=== PATIENT | female | born 1990 | race Caucasian/White ===

== ENCOUNTER 2018-02-06 03:08 | Inpatient (IN) | payer BC ==
[~2018-02-06] VITALS: Ht 152.4 cm; Wt 80.0 kg
[~2018-02-06 03:08] MED LIST: DOCU-131 PO; METH500T97 PO; ONDA4TAB7 PO; OXYC-432 PO; OXYC10TA6 PO
[2018-02-06] MEDS ORDERED: D5%-LACTATED RINGERS 1,000 ML IV SCH (04:23)
[2018-02-06] MEDS ORDERED: OXYTOCIN 30U/ 0.9% NaCL 500ML 500 ML IV ONE (04:23)
[2018-02-06] MEDS ORDERED: FENTANYL/BUPIV./NS/PF 250 ML EPIDCONT SCH ×3 (04:27→05:57)
[2018-02-06] MEDS ORDERED: FENTANYL PF 100 MCG/2ML ONE ×2 (04:28→05:25)
[2018-02-06] MEDS ORDERED: FENTANYL PF 100 MCG/2ML IV PRN (04:30)
[2018-02-06] MEDS ORDERED: METOCLOPRAMIDE 5 MG/ML, 2ML IVPush PRN (04:30)
[2018-02-06] MEDS ORDERED: ONDANSETRON 2MG/ML, 2ML IVPush PRN ×2 (04:30→06:00)
[2018-02-06] MEDS ORDERED: CALCIUM CARBONATE 500 MG TAB.CHEW PO PRN (04:30)
[2018-02-06] MEDS ORDERED: TERBUTALINE 1 MG/ML, 1ML IVPush PRN (04:30)
[2018-02-06] MEDS ORDERED: SODIUM CITRATE/CITRIC ACID 30 ML UDC PO PRN (04:30)
[2018-02-06] MEDS ORDERED: FENTANYL PF 100 MCG/2ML IVPush PRN (04:30)
[2018-02-06] MEDS ORDERED: MISOPROSTOL 200 MCG TABLET ONE (04:32)
[2018-02-06] MEDS ORDERED: LIDOCAINE/PF 1%, 30ML ONE (04:33)
[2018-02-06] MEDS ORDERED: NEWBORN KIT ONE (04:34)
[2018-02-06] MEDS: LACTATED RINGERS 1,000 ML IV SCH ×3 (04:54→21:57)
[2018-02-06] MEDS ORDERED: FENTANYL PF 500 MCG, BUPIVACAINE/PF 0.5%, 30ML 62.5 ML in SODIUM CHLORIDE 0.9% 177.5 ML EPIDCONT SCH (05:00)
[2018-02-06 05:13] LABS: BASOPHILS # (AUTO) 0.01 x10^3/uL (0-0.1); BASOPHILS % (AUTO) 0 % (0-1); EOSINOPHILS # (AUTO) 0.03 x10^3/uL (0-0.4); EOSINOPHILS % (AUTO) 0 % (1-7); LYMPHOCYTES # (AUTO) 1.76 x10^3/uL (1-3.4); LYMPHOCYTES % (AUTO) 12 % (22-44); MD NO; MEAN CORPUSCULAR HEMOGLOBIN 30.3 pg (27.0-34.8); MEAN CORPUSCULAR HGB CONC 33.7 g/dL (32.4-35.8); MEAN CORPUSCULAR VOLUME 89.9 fL (80-100); MEAN PLATELET VOLUME 9.6 fL (7.4-10.4); MONOCYTES # (AUTO) 0.94 x10^3/uL (0.2-0.8); MONOCYTES % (AUTO) 7 % (2-9); NEUTROPHILS # (AUTO) 11.65 x10^3/uL (1.8-6.8); NEUTROPHILS % (AUTO) 81 % (42-75); PLATELET COUNT 249 x10^3/uL (130-400); RED BLOOD COUNT 4.64 x10^6/uL (3.82-5.3)
[2018-02-06] MEDS ORDERED: OXYTOCIN 30U/ 0.9% NaCL 500ML 500 ML ONE ×2 (05:18→07:02)
[2018-02-06] MEDS ORDERED: BUPIVACAINE/PF 0.5% ONE (05:25)
[2018-02-06] MEDS ORDERED: BUPIVACAINE 0.25% ONE (05:29)
[2018-02-06] MEDS ORDERED: LIDOCAINE/PF 1.5%-EPI 1:200K, 30ML ONE (05:29)
[2018-02-06] MEDS ORDERED: LACTATED RINGERS 1,000 ML IVBOLUS PRN (06:00)
[2018-02-06] MEDS ORDERED: EPHEDRINE 50 MG/ML, 1ML IVPush PRN (06:00)
[2018-02-06] MEDS ORDERED: ACETAMINOPHEN 325 MG TABLET PO PRN (06:30)
[2018-02-06] MEDS ORDERED: MISOPROSTOL 200 MCG TABLET PR PRN (06:30)
[2018-02-06] MEDS ORDERED: ONDANSETRON 2MG/ML, 2ML IV PRN (06:30)
[2018-02-06] MEDS ORDERED: IBUPROFEN 600 MG TABLET ONE (07:02)
[2018-02-06] MEDS: OXYTOCIN 30U/ 0.9% NaCL 500ML 500 ML IV SCH (07:05)
[2018-02-06] MEDS: IBUPROFEN 600 MG TABLET PO PRN ×3 (07:05→21:23)
[2018-02-06] MEDS ORDERED: OXYcodone/APAP 5/325MG TABLET ONE (08:38)
[2018-02-06] MEDS: OXYcodone/APAP 5/325MG TABLET PO PRN ×4 (08:39→20:13)
[2018-02-06] MEDS: PRENATAL VIT/IRON/FA 1 EACH TABLET PO SCH (09:00)
[2018-02-06 09:50] VITALS: BP 104/54
[2018-02-06] MEDS: DOCUSATE 100 MG CAPSULE PO PRN ×2 (12:29→20:13)
[2018-02-06 12:32] VITALS: BP 105/60
[2018-02-06 13:43] LABS: BASOPHILS # (AUTO) 0.02 x10^3/uL (0-0.1); BASOPHILS % (AUTO) 0 % (0-1); EOSINOPHILS # (AUTO) 0.03 x10^3/uL (0-0.4); EOSINOPHILS % (AUTO) 0 % (1-7); LYMPHOCYTES # (AUTO) 1.57 x10^3/uL (1-3.4); LYMPHOCYTES % (AUTO) 12 % (22-44); MD NO; MEAN CORPUSCULAR HEMOGLOBIN 30.7 pg (27.0-34.8); MEAN CORPUSCULAR HGB CONC 34.1 g/dL (32.4-35.8); MEAN CORPUSCULAR VOLUME 89.9 fL (80-100); MEAN PLATELET VOLUME 9.3 fL (7.4-10.4); MONOCYTES # (AUTO) 0.88 x10^3/uL (0.2-0.8); MONOCYTES % (AUTO) 7 % (2-9); NEUTROPHILS # (AUTO) 10.41 x10^3/uL (1.8-6.8); NEUTROPHILS % (AUTO) 81 % (42-75); PLATELET COUNT 219 x10^3/uL (130-400); RED BLOOD COUNT 4.12 x10^6/uL (3.82-5.3); RED CELL DISTRIBUTION WIDTH 14.2 % (9.6-15.2)
[2018-02-06 17:25] VITALS: BP 105/70
[2018-02-06 19:20] VITALS: BP 90/57
[2018-02-07] MEDS: OXYcodone/APAP 5/325MG TABLET PO PRN (00:52)
[2018-02-07] MEDS: OXYcodone IR 5MG TABLET PO PRN ×4 (00:55→13:43)
[2018-02-07 00:57] VITALS: BP 101/67
[2018-02-07] MEDS: OXYTOCIN 30U/ 0.9% NaCL 500ML 500 ML IV SCH (02:24)
[2018-02-07] MEDS: IBUPROFEN 600 MG TABLET PO PRN ×2 (04:58→10:57)
[2018-02-07] MEDS: LACTATED RINGERS 1,000 ML IV SCH (05:57)
[2018-02-07 08:00] VITALS: BP 111/75
[2018-02-07] MEDS: DOCUSATE 100 MG CAPSULE PO PRN (08:56)
[2018-02-07] MEDS: PRENATAL VIT/IRON/FA 1 EACH TABLET PO SCH (08:56)
[2018-02-07] MEDS ORDERED: IBUP-1222 PO (11:59)
[2018-02-07] MEDS ORDERED: OXYC-302 PO (11:59)
== END 2018-02-07 14:00 | disposition home or self-care (01) | DRG 807 ==
LOC: LDOP 03:08 → LDIP 04:23 → 2NW 09:40
PROVIDERS: ADMIT Obstetrics & Gynecology; ATTEND Obstetrics & Gynecology
PROC: 10E0XZZ Delivery of Products of Conception, External Approach (ICD-10-PCS; principal; 2018-02-06)
PROC: 0HQ9XZZ Repair Perineum Skin, External Approach (ICD-10-PCS; 2018-02-06)
PROC: 00HU33Z Insertion of Infusion Device into Spinal Canal, Percutaneous Approach (ICD-10-PCS; 2018-02-06)
PROC: 3E0R3BZ Introduction of Anesthetic Agent into Spinal Canal, Percutaneous Approach (ICD-10-PCS; 2018-02-06)
DX: O62.3 Precipitate labor (principal); Z37.0 Single live birth; O70.0 First degree perineal laceration during delivery; Z3A.37 37 weeks gestation of pregnancy
CPT/HCPCS: 36415; 85025; 86850; 86900; G0378; J3010; J3490; J2590; J7050; J7120